=== PATIENT | male | born 1995 | race Two or more races ===

== ENCOUNTER 2024-07-29 10:35 | Emergency (ER) | payer BC ==
[~2024-07-29] VITALS: Ht 170.2 cm; Wt 68.8 kg
[2024-07-29 10:45] VITALS: BP 131/76; PULSE 70; RESP 15; TEMP 98.5; O2SAT 98
[2024-07-29] MEDS ORDERED: IBUP-1986 PO (12:01)
[2024-07-29] MEDS ORDERED: ACET-1025 PO (12:01)
[2024-07-29] MEDS ORDERED: AMOX875T10 PO (12:01)
== END 2024-07-29 12:28 | disposition home or self-care (01) ==
LOC: ER 10:36
DX: K04.7 Periapical abscess without sinus (principal)
CPT/HCPCS: 99283

== ENCOUNTER 2025-02-05 15:41 | Inpatient (IN) | payer BC ==
[~2025-02-05] VITALS: Ht 172.7 cm; Wt 74.1 kg
[~2025-02-05 15:41] MED LIST: IBUP-1986 PO
--- NOTE | 2025-02-05 15:58 | Physician Documentation ---
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 Patient was working at his own house which is a new or house all day yesterday moving instillation. Patient was not wearing a respirator. Patient denies any chest pain or shortness of breath at rest. Patient denies any respiratory or cardiac medical history. Patient states that after working with ambulation he started breathing very heavily due to the irritants and ended up vomiting and retching violently approximately 4-5 times. Patient now has throat pain Medication Reconciliation Allergies: Coded Allergies: No Known Allergies (Unverified , 02/05/25) Miscellaneous Medications Home Med List (No Home Medications), (Reported) Discontinued Medications Ibuprofen (Ibuprofen), 1 TAB PO Q8H Discontinued Reason: Other Past Medical History Past Medical History: No Pertinent History Past Surgical History: noncontributory Drug Use: none Lives with: Spouse Lives In: Home Occupation: employed Review of Systems All Other Systems at this time: Reviewed and Negative Respiratory: Reports: see HPI Physical Exam Vital Signs: RN Vital Signs have been reviewed: Yes, Temperature: 97.0, Source: Temporal, Heart Rate: 80, Respiratory Rate: 18, BP: 140/84, Pulse Oximetry: 100, Weight: 74.100 Oxygen Flow Rate: 0 Physical Exam General: Alert, no apparent distress. HEENT: PERRL, EOMI, no injection, moist mucous membranes. Neck: Full range of motion. Some soft tissue emphysema bilaterally Respiratory: Lungs clear, no respiratory distress. No wheezes rales or rhonchi Chest: No accessory muscle use. Cardiovascular: Regular rate and rhythm, no murmurs. Extremities: Normal range of motion, no deformity. Neurologic: Oriented x4. Psychiatric: Normal mood and affect. Skin: Normal color, warm and dry. No edema, no ecchymosis. Progress Results/Orders Results/Orders Orders - FAVIOLA LLAMAS MD Ct Chest (02/06/25 11:45) Oxygen (02/06/25 13:00) Saline Lock (02/06/25 13:00) General Nursing Order (02/06/25 13:00) Page Hospitalist (02/06/25 13:00) Fill Out Med Reconciliation (02/06/25 13:00) Completed Orders - FAVIOLA LLAMAS MD Ct Chest (02/06/25 11:45) Medications Received in ER Medications (Trade) Dose Ordered Sig/Niurka Route PRN Reason Start Time Stop Time Status Last Admin Dose Admin Ceftriaxone Sodium 50 ml @ 100 mls/hr ONCE ONCE IV 02/06/25 05:50 02/06/25 06:19 DC 02/06/25 06:43 100 MLS/HR Vital Signs 02/05/25 02/05/25 02/05/25 02/05/25 15:44 18:20 21:00 23:00 Temp 97.0 Pulse 80 81 79 75 Resp 18 16 14 12 B/P (MAP) 140/84 124/91 (102) 126/90 (102) 124/88 (100) Pulse Ox 100 99 99 99 O2 Flow Rate 0 02/06/25 02/06/25 02/06/25 02/06/25 01:00 04:54 06:20 06:27 Pulse 76 73 61 Resp 12 12 17 B/P (MAP) 122/89 (100) 124/88 (100) 111/69 (83) Pulse Ox 99 99 99 O2 Flow Rate 0 02/06/25 02/06/25 02/06/25 02/06/25 07:19 08:41 09:14 09:43 Pulse 65 58 52 53 Resp 14 16 14 13 B/P (MAP) 115/76 (89) 109/78 (88) 110/74 (86) 116/79 (91) Pulse Ox 98 99 99 100 O2 Flow Rate 0 0 0 0 02/06/25 02/06/25 02/06/25 02/06/25 10:21 11:15 11:47 12:30 Pulse 54 65 62 62 Resp 16 14 16 16 B/P (MAP) 108/72 (84) 117/75 (89) 119/73 (88) 118/69 (85) Pulse Ox 100 100 100 99 O2 Flow Rate 0 0 0 0 02/06/25 02/06/25 12:57 13:05 Pulse 65 Resp 14 B/P (MAP) 126/84 (98) Pulse Ox 99 O2 Delivery Nasal Cannula* O2 Flow Rate 0 2 FiO2 28 Laboratory Tests Test 02/05/25 17:38 White Blood Count 6.8 Red Blood Count 5.30 Hemoglobin 15.6 Hematocrit 44.6 Mean Corpuscular Volume 84.2 Mean Corpuscular Hemoglobin 29.4 Mean Corpuscular Hemoglobin Concent 34.9 Red Cell Distribution Width 12.7 Platelet Count 236 Mean Platelet Volume 7.6 Neutrophils (%) (Auto) 69.1 Lymphocytes (%) (Auto) 23.6 Monocytes (%) (Auto) 5.2 Eosinophils (%) (Auto) 1.8 Basophils (%) (Auto) 0.3 Neutrophils # (Auto) 4.7 Lymphocytes # (Auto) 1.6 Monocytes # (Auto) 0.4 Eosinophils # (Auto) 0.1 Basophils # (Auto) 0.0 CBC Comment Sodium Level 139 Potassium Level 3.5 Chloride Level 103 Carbon Dioxide Level 31.5 Anion Gap 5 L Blood Urea Nitrogen 21 H Creatinine 1.11 H Estimated GFR/1.73 m2 78 BUN/Creatinine Ratio 18.9 Glucose Level 75 Lactic Acid Level 1.3 Calcium Level 8.6 Albumin 3.9 Chemistry Comments Re-Evaluation Re-Evaluation #1: Re-Evaluation Time: 06:00 Progress Assumed care of the patient from Dr. Deal, who had been responsible for him overnight. No new complaints. I examined the patient and explained the delay: Apparently it had been arranged yesterday to have the patient go to [facility] for the esophagogram that Dr. Quigley recommended. According to the overnight postal service clerk, multiple attempts were made to transfer the patient out and were unsuccessful, however [facility] agreed to perform the study, which we are unable to perform here. With the understanding being that if the patient had an esophageal rupture he would stay at that facility, and if negative he would return here. Re-Evaluation #2: Re-Evaluation Time: 07:30 Progress Patient to go to [facility] for his study when the appropriate radiology department arrives at 8:00 a.m.. It appears that [facility] is full and will not accept patient as a transfer regardless of findings; he will need to return here. Patient remains stable. Re-Evaluation #3: Re-Evaluation Time: 09:00 Progress Appropriate radiology department will arrive at 12:30 p.m.. We are arranging transportation. Patient stable without change. BP 116/79, oxygen saturation 100%, heart rate 52 normal sinus rhythm Re-Evaluation #4: Re-Evaluation Time: 11:[address] Quigley, CT surgery, here to see patient. Repeat CT ordered, with gastrograffin, pending. Dr. Quigley to read EKG/XRAY/CT/US/VASC/MRI Chest X-Ray : Additional Comments CHEST RADIOGRAPH Indication: Inhalation injury Technique: DI CHEST,SINGLE VIEW Comparison: None FINDINGS: There is extensive soft tissue emphysema within the neck and right chest wall tissues. Pneumomediastinum. The cardiac silhouette is unremarkable. The lungs demonstrate no pulmonary airspace consolidation. The pulmonary vasculature is unremarkable. There is no pleural effusion. There is no pneumothorax. IMPRESSION: Pneumomediastinum as well as soft tissue emphysema within the neck and right chest wall soft tissues. Recommend CT chest to further characterize. Correlate clinically to evaluate for esophageal, tracheal injury. #1: Impression CT Chest without intravenous contrast INDICATION: Soft tissue emphysema TECHNIQUE: Multidetector spiral CT of the chest was performed from the lung apices to the upper abdomen. Axial, coronal and sagittal multiplanar reformats were performed. Radiation Dose : 1. Chest: CTDI volume is 14.3 mGy. Dose-length product is 537 mGy*cm The dose indicators for CT are the volume Computed Tomography (CT) Dose Index (CTDIvol) and the Dose Length Product (DLP), and are measured in units of mGy and mGy-cm, respectively. These indicators are not patient dose, but values generated from the CT scanner acquisition factors. The report includes radiation exposure data for exposures received during this examination. Comparison: None Findings: Lower neck: Normal thyroid. Lungs: No focal consolidation. Heart/Vascular Structures: Normal heart size. No pericardial effusion. Extensive pneumomediastinum. Lymph Nodes: No adenopathy Pleura: No pleural effusion or significant pneumothorax. Musculoskeletal: No acute osseous abnormality. Soft tissues: Extensive subcutaneous emphysema is seen throughout the lower neck and chest. Upper abdomen: Limited portions of the upper abdomen are unremarkable. IMPRESSION: 1. Extensive pneumomediastinum and subcutaneous emphysema. 2. No pneumothorax. 3. No acute pulmonary disease. CT #2: Impression CT Neck without Contrast CLINICAL HISTORY: Soft tissue emphysema TECHNIQUE: CT of the neck was performed without intravenous contrast. This exam was performed according to our departmental dose optimization program. Up-to-date CT equipment and radiation dose reduction techniques are utilized as appropriate. WID: COMPARISON: None Neck findings: Brain and Orbits: The visualized intracranial and intraorbital structures appear grossly unremarkable. Sinuses and Mastoids: The visualized paranasal sinuses and mastoid air cells are clear aside from mild mucosal thickening of the left sphenoid and right maxillary sinus. Parotid and Submandibular Glands: The parotid and submandibular glands appear unremarkable. Cervical Lymph Nodes: No significant cervical adenopathy is seen. Thyroid: No significant thyroid abnormalities are seen. Larynx and Hypopharynx: The larynx and hypopharynx appear normal. Oral Cavity, Oropharynx, and Nasopharynx: The base of the tongue, oropharyngeal region, and posterior nasopharynx appear unremarkable. Cervical Vasculature: Not opacified limiting evaluation for patency. Osseous Structures: No destructive osseous lesions are seen. A few mandibular teeth have been removed. Visualized Upper Lungs: No suspicious lesions are identified within the visualized portions of the upper lungs. There is soft tissue emphysema throughout the mediastinum, chest wall, and bilateral neck. IMPRESSION: Pneumomediastinum and soft tissue emphysema extending into the visualized chest wall and bilateral neck. This is most commonly spontaneous in the setting of terminal alveolar rupture due to increased alveolar pressure. Tracheobronchial injury is considered less likely given no additional findings in the chest to suggest injury. Esophageal perforation is also considered not likely if there is no history of trauma or medical intervention history. Correlate with clinical history and presentation. Consults/PCP Consults/PCP : Time Call Requested: 13:04 Consult Reason/Comments: Hospitalist Additional Comment 13:20 Case d/w Dr. Conti, who will admit. Medical Decision Making Findings Differentials include chemical irritant exposure, asthma, due to not wearing a respirator while working with loose white [employer] isolation. Patient states homeless belt in 1999 new or home reducing concerns of asbestos or other carcinogenic inhalant 2nd be found in older homes. Chest x-ray to evaluate further patient's vital signs reassuring breath sounds reassuring no wheezes rales or rhonchi. Due to pneumomediastinum soft tissue emphysema we will admit for observation spoke to hospitalist as well as Cardiothoracic surgeon. 1929: Spoke to Dr. Quigley Cardiothoracic surgeon advising for contrasted swallow study to evaluate for any esophageal perforation defer potential transfer versus observation in-house. Departure Time of Disposition: 13:04 Disposition: 02 [facility]ORT [facility] Admitted to Inpatient Unit: yes, to hospitalist Impression: Primary Impression: Irritation of pharynx Additional Impressions: Toxic effect of fiberglass, unintentional Qualified Codes: T65.831A - Toxic effect of fiberglass, accidental (unintentional), initial encounter Pneumomediastinum Soft tissue emphysema Condition: Guarded Referrals: NO PRIMARY CARE PROVIDER (PCP) Education Educated: Patient Educated regarding: diagnosis, treatment Signature Scribe Signature: No scribe Attestation: The note accurately reflects work and decisions made by me.Cristiane FAJARDO 02/05/25 15:57 CRISTIANE ASH NP Feb 05, 2025 15:58 FAVIOLA LLAMAS MD Feb 06, 2025 09:52
--- NOTE | 2025-02-05 16:34 | RADIOLOGY REPORT ---
CHEST RADIOGRAPH Indication: Inhalation injury Technique: DI CHEST,SINGLE VIEW Comparison: None FINDINGS: There is extensive soft tissue emphysema within the neck and right chest wall tissues. Pneumomediastinum. The cardiac silhouette is unremarkable. The lungs demonstrate no pulmonary airspace consolidation. The pulmonary vasculature is unremarkable. There is no pleural effusion. There is no pneumothorax. IMPRESSION: Pneumomediastinum as well as soft tissue emphysema within the neck and right chest wall soft tissues. Recommend CT chest to further characterize. Correlate clinically to evaluate for esophageal, tracheal injury.
--- NOTE | 2025-02-05 17:16 | RADIOLOGY REPORT ---
CT Chest without intravenous contrast INDICATION: Soft tissue emphysema TECHNIQUE: Multidetector spiral CT of the chest was performed from the lung apices to the upper abdomen. Axial, coronal and sagittal multiplanar reformats were performed. Radiation Dose : 1. Chest: CTDI volume is 14.3 mGy. Dose-length product is 537 mGy*cm The dose indicators for CT are the volume Computed Tomography (CT) Dose Index (CTDIvol) and the Dose Length Product (DLP), and are measured in units of mGy and mGy-cm, respectively. These indicators are not patient dose, but values generated from the CT scanner acquisition factors. The report includes radiation exposure data for exposures received during this examination. Comparison: None Findings: Lower neck: Normal thyroid. Lungs: No focal consolidation. Heart/Vascular Structures: Normal heart size. No pericardial effusion. Extensive pneumomediastinum. Lymph Nodes: No adenopathy Pleura: No pleural effusion or significant pneumothorax. Musculoskeletal: No acute osseous abnormality. Soft tissues: Extensive subcutaneous emphysema is seen throughout the lower neck and chest. Upper abdomen: Limited portions of the upper abdomen are unremarkable. IMPRESSION: 1. Extensive pneumomediastinum and subcutaneous emphysema. 2. No pneumothorax. 3. No acute pulmonary disease. Radiation optimization: All CT scans at this facility use at least one of these dose optimization techniques: automated exposure control mA and/or kV adjustment per patient size (includes targeted exams where dose is matched to clinical indication) or iterative reconstruction.
--- NOTE | 2025-02-05 17:22 | RADIOLOGY REPORT ---
CT Neck without Contrast CLINICAL HISTORY: Soft tissue emphysema TECHNIQUE: CT of the neck was performed without intravenous contrast. This exam was performed according to our departmental dose optimization program. Up-to-date CT equipment and radiation dose reduction techniques are utilized as appropriate. WID: COMPARISON: None Neck findings: Brain and Orbits: The visualized intracranial and intraorbital structures appear grossly unremarkable. Sinuses and Mastoids: The visualized paranasal sinuses and mastoid air cells are clear aside from mild mucosal thickening of the left sphenoid and right maxillary sinus. Parotid and Submandibular Glands: The parotid and submandibular glands appear unremarkable. Cervical Lymph Nodes: No significant cervical adenopathy is seen. Thyroid: No significant thyroid abnormalities are seen. Larynx and Hypopharynx: The larynx and hypopharynx appear normal. Oral Cavity, Oropharynx, and Nasopharynx: The base of the tongue, oropharyngeal region, and posterior nasopharynx appear unremarkable. Cervical Vasculature: Not opacified limiting evaluation for patency. Osseous Structures: No destructive osseous lesions are seen. A few mandibular teeth have been removed. Visualized Upper Lungs: No suspicious lesions are identified within the visualized portions of the upper lungs. There is soft tissue emphysema throughout the mediastinum, chest wall, and bilateral neck. IMPRESSION: Pneumomediastinum and soft tissue emphysema extending into the visualized chest wall and bilateral neck. This is most commonly spontaneous in the setting of terminal alveolar rupture due to increased alveolar pressure. Tracheobronchial injury is considered less likely given no additional findings in the chest to suggest injury. Esophageal perforation is also considered not likely if there is no history of trauma or medical intervention history. Correlate with clinical history and presentation.
--- NOTE | 2025-02-05 17:33 | ELECTROCARDIOGRAPH REPORT ---
[facility] Test Date: 2025-02-05 Test Time: 17:31:03 Pat Name: CHARLEE ALDRICH Department: [facility] Patient ID: [facility]-[id number] Room: Gender: M Hall Coordinator: : 1995 Requested By: ERIKA ASH Order Number: [id number] Reading MD: Measurements Intervals [place] Rate: 68 P: 26 [place]: 128 QRS: 57 QRSD: 92 T: 9 QT: 386 QTc: 411 Interpretive Statements Sinus rhythm Please click the below link to view image of tracing.
[2025-02-05 17:54] LABS: MEAN PLATELET VOLUME 7.6 FL (7.4-10.4); RED CELL DISTRIBUTION WIDTH 12.7 % (11.5-14.5)
[2025-02-05 18:02] LABS: CREATININE 1.11 MG/DL (0.60-1.10); TOTAL CARBON DIOXIDE 31.5 MMOL/L (24-32); eCRCL 95 ML/MIN; eGFR 78 ML/MIN
[2025-02-06] MEDS: CefTRIAXone/D5W-Rocephin 1gm 50 ML IV ONE (06:43)
[2025-02-06] MEDS ORDERED: diatr meglu/diatrizoate 30ml oral sol.-(3 dose) bottle ONE (11:27)
[2025-02-06] MEDS ORDERED: NO HOME MEDS (12:58)
--- NOTE | 2025-02-06 13:04 | RADIOLOGY REPORT ---
CLINICAL HISTORY: pneumomediastinum, r/o esophageal rupture w/ 1 dose oral contrast TECHNIQUE: CT of the chest was performed without intravenous contrast. This exam was performed according to our departmental dose optimization program. Up-to-date CT equipment and radiation dose reduction techniques are utilized as appropriate. Radiation optimization: All CT scans at this facility use at least one of these dose optimization techniques: automated exposure control mA and/or kV adjustment per patient size (includes targeted exams where dose is matched to clinical indication) or it erative reconstruction.] COMPARISON: CT CT CHEST on DOS: 02/05/25, CT CT NECK SOFT TISSUES on DOS: 02/05/25, DI CHEST,SINGLE VIEW on DOS: 02/05/25 FINDINGS: Lower Neck: Soft tissue emphysema extends into the bilateral neck. Axilla, Mediastinum and Abimbola: Soft tissue emphysema in the bilateral axilla. There is pneumomediastinum. There is residual thymic tissue in the anterior mediastinum. There is no thoracic lymphadenopathy although limited evaluation of the abimbola in the absence of intravenous contrast. There is oral contrast that is seen within the distal esophagus. No extravasation of contrast is seen. Heart and Great Vessels: Unremarkable. Airway, Lungs and Pleura: Trachea and central airways are patent. No airspace consolidation, pleural effusion, or pneumothorax. Upper Abdomen: No acute abnormality. Chest Wall and Osseous Structures: Unremarkable. Mild chest wall emphysema. IMPRESSION: 1. No contrast extravasation from the esophagus to suggest perforation. 2. Persistent Pneumomediastinum with soft tissue emphysema extending to the chest wall and bilateral neck.
--- NOTE | 2025-02-06 13:54 | CONSULTATION REPORT ---
Consult Providers to CC ~ History of Present Illness Reason for Admit\Complaint: Pneumomediastinum History of Present Illness 29 y.o. 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 He presented to the emergency department complaining of throat pain and soreness when swallowing. Chest CT demonstrated extensive subcutaneous emphysema in the neck and pneumomediastinum. Images reviewed and there is no evidence of pleural effusion or pneumothorax. Gastrografin swallow to rule out esophageal perforation was requested but unable to be performed at this facility. Subsequently, oral contrast Gastrografin was performed followed by plain CT of the chest with no evidence of Gastrografin leak into the neck or chest. Allergies: Coded Allergies: No Known Allergies (Unverified , 02/05/25) Home Medications Home Medications Active Reported No Home Medications (Home Med List) Each Past Social History Social History Comment Lives with spouse ROS ROS Negative except as described above in HPI. Exam Vitals: Vital Signs Date Time Temp Pulse Resp B/P (MAP) Pulse Ox O2 Delivery O2 Flow Rate FiO2 02/06/25 13:05 Nasal Cannula* 2 28 02/06/25 12:57 65 14 126/84 (98) 99 02/05/25 15:44 97.0 General: Well-developed well-nourished young adult in no acute distress HEENT: Normocephalic atraumatic Neck: Subcutaneous emphysema on palpation, no carotid bruits Chest: Lungs clear to auscultation bilaterally Cardiovascular: Regular rate and rhythm without murmur Abdomen: Soft nontender nondistended Extremities: No clubbing cyanosis or edema Central Nervous System: Alert, appropriate, oriented. 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 No evidence of esophageal perforation or leak on Gastrografin swallow followed by CT of chest without contrast. Recommend admission to hospitalist service with p.o. intake of water alone until patient able to swallow without pain followed by advancement to liquids and then to solids as tolerated. Administration of oxygen per nasal cannula will facilitate reabsorption of the air in the soft tissues of the neck. Recommend daily chest x-ray to rule out development of pneumothorax and monitor reabsorption/resolution of subcutaneous emphysema during recovery. JUNIOR DORMAN MD Feb 06, 2025 13:54
[2025-02-06] MEDS ORDERED: magnesium hydroxide 30ml (MOM) UD suspension PO PRN (14:10)
[2025-02-06] MEDS ORDERED: magnesium sulf-water 2g/50mL 50 ML IV PRN (14:10)
[2025-02-06] MEDS ORDERED: potassium Cl 20 mEq SR tablet PO PRN ×2 (14:10)
[2025-02-06] MEDS ORDERED: magnesium sulf-water 4G/100mL 100 ML IV PRN (14:10)
[2025-02-06] MEDS ORDERED: HYDROmorphone/PF 0.2 MG/ML SYRINGE IV PRN (14:10)
[2025-02-06] MEDS ORDERED: HYDROcodone/acetaminophen 10/325mg tab PO PRN (14:10)
[2025-02-06] MEDS ORDERED: potassium Cl 40MEQ/1/2NS 520ml 520 ML IV PRN (14:10)
[2025-02-06] MEDS ORDERED: HYDROmorphone inj. 0.5 MG/0.5 ML DISP.SYRIN IV PRN (14:10)
[2025-02-06] MEDS ORDERED: mag hydrox/Alum hydrox/simeth 30ml oral suspension PO PRN (14:10)
[2025-02-06] MEDS ORDERED: HYDROcodone/acetaminophen 5mg/325mg tablet PO PRN (14:10)
[2025-02-06] MEDS ORDERED: ondansetron/PF 4mg/2ml inj IV PRN (14:10)
[2025-02-06] MEDS: normal saline 1000ml 1,000 ML IV SCH (14:46)
--- NOTE | 2025-02-06 16:31 | HISTORY AND PHYSICAL ---
History & Physical Providers to CC ~ History of Present Illness Reason for Admit\\Complaint: Spontaneous pneumomediastinum History of Present Illness This is a healthy 29-year-old male who was remodeling his house and removing insulation when he inhaled some of the fine dust and was not wearing a respirator. The patient developed a cough that evening on the some mild difficulty breathing. The patient woke up the following morning and noticed that his neck was swollen and was having difficulty swallowing and breathing and decided to come to the ED his symptoms have slightly improved since arrival to ED initially the patient was going to be transferred to [facility] for an esophagram as there is on CT scan I spontaneous pneumomediastinum with subcutaneous emphysema in the neck bilaterally and chest. The patient is evaluated by Cardiothoracic surgeon Dr. Quigley who recommended continuous oxygen and water and her advanced diet the patient has difficulty swallowing improves as well as daily chest x-rays for evaluation of a pneumothorax as well as to monitor the patient's pneumomediastinum. Allergies: Coded Allergies: No Known Allergies (Unverified , 02/05/25) Home Medications Home Medications Active Reported No Home Medications (Home Med List) Each Past Medical History Past Medical History No chronic health conditions Past Surgical History Surgical History Comment No prior Family History Family History: First degree relatives alive and well FATHER MOTHER Past Social History Social History Comment Patient denes history of smoking/ drinking alcohol nor any illicit drug use Full Code Status. ROS ROS Except for positives in the HPI the rest of the 14 point review systems is negative Exam Vitals: Vital Signs Date Time Temp Pulse Resp B/P (MAP) Pulse Ox O2 Delivery O2 Flow Rate FiO2 02/06/25 16:16 62 14 117/60 (79) 99 0 02/06/25 13:05 Nasal Cannula* 28 02/05/25 15:44 97.0 General: Gen. No acute distress alert and oriented 4 HEENT: Generalized swelling of the neck bilaterally with palpable subcutaneous emphysema Lungs clear to ascultation bilaterally, no wheezes rales or rhonchi appreciated Heart normal sinus rhythm no murmurs rubs or clicks noted Abdomen soft nontender bowel sounds are normoactive Lower extremities no clubbing cyanosis, nor edema appreciated bilaterally Diagnostic Data Last Recorded Lab Results: 02/05/25 1738 02/05/25 173 Advance Care Planning Advanced Care plannin - 30 Minutes Problems: (1) Pneumomediastinum Status: Acute Additional Plan # pneumomediastinum # subcutaneous emphysema Evaluated by Dr. 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 No evidence of esophageal perforation or leak on Gastrografin swallow followed by CT of chest without contrast. Recommend admission to hospitalist service with p.o. intake of water alone until patient able to swallow without pain followed by advancement to liquids and then to solids as tolerated. Administration of oxygen per nasal cannula will facilitate reabsorption of the air in the soft tissues of the neck. Recommend daily chest x-ray to rule out development of pneumothorax and monitor reabsorption/resolution of subcutaneous emphysema during recovery." Continuous O2 at 2 L Clear liquids are ordered in his not tolerated than back down to water Daily chest x-ray. Note the patient is in no acute distress on exam and was able to talk in full sentences without any shortness breath/ dyspnea # kidney disease mild likely MANUELA Monitor with daily metabolic panels # DVT prophylaxis SCDs I spent a total of 16 minutes on reviewing various resuscitative measures/ ACP with the patient at the time of admission. The patient has decided on full code status. Date of Service: Feb 06, 2025 Billing Provider: JUAN CARLOS KEITH DO Common Visit Codes: 20400-LNACZGA INP/OBS CARE (HIGH) Secondary Visit Codes: 95159-DYYFTPBK CARE PLAN 30 MINUTES JUAN CARLOS KEITH DO Feb 06, 2025 16:31
[2025-02-06 17:11] VITALS: BP 113/71; PULSE 75; RESP 16; TEMP 98; O2SAT 98
[2025-02-06] MEDS: docusate sod 100mg capsule PO SCH (20:00)
[2025-02-06] MEDS: K and/or MAG REPLACEMENT MC SCH (20:00)
[2025-02-07 05:32] LABS: MEAN PLATELET VOLUME 7.9 FL (7.4-10.4); RED CELL DISTRIBUTION WIDTH 12.9 % (11.5-14.5)
[2025-02-07 05:41] LABS: CREATININE 0.93 MG/DL (0.60-1.10); TOTAL CARBON DIOXIDE 34.9 MMOL/L (24-32); eCRCL 113 ML/MIN; eGFR > 90 ML/MIN
[2025-02-07 06:00] VITALS: BP 129/63; PULSE 74; RESP 16; TEMP 96.4; O2SAT 100
--- NOTE | 2025-02-07 07:21 | RADIOLOGY REPORT ---
CHEST RADIOGRAPH Indication: Follow pneumomediastinum Technique: Single frontal view of the chest was obtained Comparison: CT CT CHEST on DOS: 02/06/25 FINDINGS: Lines and Tubes: None Lungs: No focal consolidation. Pleura: No effusion. No pneumothorax. Cardiomediastinal contours: There is persistent pneumomediastinum. Cardiovascular silhouette is stable. Bones: No acute osseous abnormality. Soft tissues: Subcutaneous emphysema in the lower neck bilaterally. IMPRESSION: 1. Persistent pneumomediastinum., not significantly changed since the most recent chest CT when accounting for differences in technique / modality. 2. Similar subcutaneous emphysema. 3. No pneumothorax.
--- NOTE | 2025-02-07 08:11 | PROGRESS NOTE ---
Progress Note CV Providers to CC ~ Antibiotics Ordered?: No Subjective Subjective Alert, pleasant, NAD, says his cough is lessened, feels his voice is stronger and he feels less air above his clavicles and neck compared to yesterday. Not SOB. Objective Vitals Vital Signs Date Time Temp Pulse Resp B/P (MAP) Pulse Ox O2 Delivery O2 Flow Rate FiO2 02/07/25 06:00 96.4 74 16 129/63 (85) 100 Nasal Cannula 2.0 02/06/25 20:00 28 Lab Results: 02/07/25 0433 02/07/25 0433 Objective Lungs - clear Heart - RRR Extr - OK Cardiac Rhythm: Sinus Rhythm, Sinus Bradycardia Problem\Assessment\Plan Additional Plan Improved subjectively. CXR shows not PTX, persistent subcut emphysema and pneumo mediastinum per radiology note. Continue to follow. Supervising MD Co-signing Provider: TATE Gama Feb 07, 2025 08:11
[2025-02-07 10:00] VITALS: BP 113/69; PULSE 75; RESP 12; TEMP 98.2; O2SAT 98
--- NOTE | 2025-02-07 19:01 | DISCHARGE SUMMARY ---
Discharge Summary Providers to CC ~ Discharge Summary Admission Diagnosis: Pneumomediastinum Hospital Course DATE OF ADMISSION: 02/06/2025 DATE OF DISCHARGE: 02/07/2025 Discharge Diagnosis\\Comment: Pneumomediastinum with subcutaneous emphysema Mild kidney disease does not meet criteria for MANUELA Operations\\Procedures: None Consultants: Dr. Quigley Cardiothoracic surgeon Complications: None Condition on DC: Stable Continued Medications: Home Med List (No Home Medications) Each Discharge Summary: I admitted Mr. Ham with the following HPI:"This is a healthy 29-year-old male who was remodeling his house and removing insulation when he inhaled some of the fine dust and was not wearing a respirator. The patient developed a cough that evening on the some mild difficulty breathing. The patient woke up the following morning and noticed that his neck was swollen and was having difficulty swallowing and breathing and decided to come to the ED his symptoms have slightly improved since arrival to ED initially the patient was going to be transferred to [facility] for an esophagram as there is on CT scan I spontaneous pneumomediastinum with subcutaneous emphysema in the neck bilaterally and chest. The patient is evaluated by Cardiothoracic surgeon Dr. Quigley who recommended continuous oxygen and water and her advanced diet the patient has difficulty swallowing improves as well as daily chest x-rays for evaluation of a pneumothorax as well as to monitor the patient's pneumomediastinum." The chest x-ray in the morning of the was negative for pneumomediastinum the patient tolerated clear liquid diet that was advanced and the patient has a regular diet at lunch including a turkey sandwich and was able to swallow without any difficulty in his edema of his neck had improved significantly in I can no longer appreciate palpable subcutaneous emphysema in the mid afternoon of the . I discussed the case with Dr. Quigley about discharging the patient for which Dr. 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 I recommended the patient returned back to the ED if he develops reoccurrence of difficulty swallowing or edema in his neck or shortness of breath. Gen. No acute distress alert and oriented 4 Lungs clear to ascultation bilaterally, no wheezes rales or rhonchi appreciated Heart normal sinus rhythm no murmurs rubs or clicks noted Abdomen soft nontender bowel sounds are normoactive Lower extremities no clubbing cyanosis, nor edema appreciated bilaterally The patient felt ready to be discharged and was medically cleared to be discharged on 02/07/2025 The patient was seen and evaluated on day of discharge. Time spent on discharge 35 minutes The patient recovered sooner than to be expected with symptomatic pneumomediastinum with subcutaneous emphysema . *Problems/Diagnosis: (1) Pneumomediastinum Status: Acute Total Time Spent on D/C: > 30 Minutes Date of Service: Feb 07, 2025 Billing Provider: JUAN CARLOS KEITH DO Common Visit Codes: 68076-UUZ/OBS DISCH DAY >30min JUAN CARLOS KEITH DO Feb 07, 2025 19:01
== END 2025-02-07 17:15 | disposition home or self-care (01) | DRG 918 ==
LOC: ER 15:41 → ED HOLD 02-06 14:13 → ORTHO 4S 02-06 17:11
PROVIDERS: ADMIT Family Medicine; ATTEND Family Medicine
DX: T65.831A Toxic effect of fiberglass, accidental (unintentional), initial encounter (principal); J39.2 Other diseases of pharynx; J98.2 Interstitial emphysema; Y92.89 Other specified places as the place of occurrence of the external cause; Z87.891 Personal history of nicotine dependence
CPT/HCPCS: 36415; 70490; 71045; 71250; 80048; 80053; 83605; 85025; 87081; 93005; 99285; A4615; G0378; J0696; J7030; Q9963